=== PATIENT | male | born 1990 | race Two or more races ===

== ENCOUNTER 2022-02-06 04:05 | Emergency (ER) | payer SELFPAY ==
[~2022-02-06] VITALS: Ht 162.6 cm; Wt 73.0 kg
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
[2022-02-06] MEDS ORDERED: ONDANSETRON PF 4 MG/2 ML VIAL. IVP ONE (04:15)
[2022-02-06] MEDS ORDERED: MORPHINE SULFATE 4 MG/ML INJ. IVP ONE ×2 (04:15→05:30)
[2022-02-06] MEDS ORDERED: LIDOCAINE 1% Multi-Dose 20 ML VIAL. ONE (04:16)
[2022-02-06] MEDS ORDERED: LIDOCAINE 2% Multi-Dose 20 ML VIAL. ONE (04:16)
[2022-02-06] MEDS ORDERED: LIDOCAINE 1% Multi-Dose 20 ML VIAL. INJ ONE (04:30)
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
[2022-02-06] MEDS ORDERED: DIPHTH,PERTUSS(ACELL),TET TOX 0.5 ML DISP.SYRIN. VAX IM ONE (05:15)
[2022-02-06] MEDS ORDERED: HYDROcodone/APAP 5/325MG 1 TAB TABLET ONE (05:15)
[2022-02-06] MEDS ORDERED: CEPH500C PO (05:33)
[2022-02-06] MEDS ORDERED: HYDR-2759 PO (05:33)
[2022-02-06 06:16] VITALS: BP 147/68
== END 2022-02-06 06:37 | disposition home or self-care (01) ==
LOC: EEVIPCON 04:05 → ER 04:05
DX: S51.812A Laceration without foreign body of left forearm, initial encounter (principal); J45.909 Unspecified asthma, uncomplicated; Z88.0 Allergy status to penicillin; Y08.89XA Assault by other specified means, initial encounter; Y93.89 Activity, other specified; Y92.89 Other specified places as the place of occurrence of the external cause; Y99.8 Other external cause status
CPT/HCPCS: 12002; 73090; 73130; 90471; 90715; 96365; 96375; 96376; 99285; J0690; J2270; J2405; J3490; 96374

== ENCOUNTER 2022-02-13 15:38 | Emergency (ER) | payer SELFPAY ==
[~2022-02-13] VITALS: Ht 175.3 cm; Wt 70.4 kg
[~2022-02-13 15:38] MED LIST: CEPH500C PO; HYDR-2759 PO
[2022-02-13 15:43] VITALS: BP 121/76
[2022-02-13] MEDS ORDERED: HYDROcodone/APAP 5/325MG 1 TAB TABLET PO ONE (16:15)
[2022-02-13] MEDS ORDERED: BACITRACIN TOPICAL OINT PACKET. TP ONE ×2 (16:25→17:00)
--- NOTE | 2022-02-13 17:03 | PHYS DOC ---
Past Medical History Past Surgical History: No Surgical History Smoking Status: Never Smoker Alcohol Use: Occasionally General Adult EDM: Chief Complaint: SUTURE/STAPLE REMOVAL HPI: HPI: Patient is a 31-year-old male presents to the emergency department for suture removal. Patient states he has sutures to his right ring finger and left forearm. Patient reports he had the sutures placed on February 06 and was told to come back to have his sutures removed in 7 to 10 days. Patient complains of pain to his right hand suture site. Patient denies other physical complaints or physical concerns. Patient reports his last tetanus immunization was less than 5 years ago. Review of Systems: Review of Systems: 14 body systems of review of systems have been reviewed. See HPI for pertinent positives and negative responses, otherwise all other systems are negative, nonpertinent or noncontributory. Constitutional: Negative except as outlined in HPI above. Skin: Negative except as outlined in HPI above. Eyes: Negative except as outlined in HPI above. HENT: Negative except as outlined in HPI above. Respiratory: Negative except as outlined in HPI above. Cardiovascular: Negative except as outlined in HPI above. GI: Negative except as outlined in HPI above. : Negative except as outlined in HPI above. Musculoskeletal: Negative except as outlined in HPI above. Integument: Negative except as outlined in HPI above. Neurologic: Negative except as outlined in HPI above. Endocrine: Negative except as outlined in HPI above. Lymphatic: Negative except as outlined in HPI above. Psychiatric: Negative except as outlined in HPI above. Heart Score: C/O Chest Pain: No Risk Factors: Risk Factors: DM, Current or recent (<one month) smoker, HTN, HLP, family history of CAD, obesity. Risk Scores: Score 0 - 3: 2.5% MACE over next 6 weeks - Discharge Home Score 4 - 6: 20.3% MACE over next 6 weeks - Admit for Clinical Observation Score 7 - 10: 72.7% MACE over next 6 weeks - Early Invasive Strategies Current Medications: Current Medications Medications (Trade) Dose Ordered Sig/Jessika Start Time Stop Time Status Last Admin Dose Admin Acetaminophen/ Hydrocodone Bitart (Lortab 5/325) 2 tab 1X ONCE 02/13/22 16:15 02/13/22 16:16 DC 02/13/22 16:15 2 TAB Bacitracin (Bacitracin Zinc Oint Pkt) 1 pkt 1X ONCE 02/13/22 17:00 02/13/22 17:01 Allergies: Allergies: Allergies Coded Allergies Type Severity Reaction Last Updated Verified No Known Drug Allergies 02/06/22 No Physical Exam: PE: Constitutional: Well developed, well nourished, no acute distress, non-toxic appearance. 31-year-old male in no apparent distress. HENT: Normocephalic, atraumatic. Eyes: Conjunctiva normal, no discharge. Neck: Normal range of motion, no stridor. Cardiovascular: No cyanosis appreciated, distal cap refill less than 2 seconds. Lungs & Thorax: Patient is in no respiratory distress, no audible adventitious lung sounds appreciated. Abdomen: Nontender, no abnormalities noted. Skin: Warm, dry, no erythema, no rash. See extremity note for focused skin examination. Back: No tenderness, no deformities. Extremities: No tenderness, no cyanosis, no clubbing, ROM intact, no edema. Suture site of right forearm well-healed, edges well approximated, only one suture remains. Right middle finger tip avulsion site has dark red crusted scabbing and, no purulent drainage, no swelling appreciated. Right ring finger distal tip avulsion site with 4 sutures embedded under dark red crusted scabbing, there is no purulent drainage, no infectious process appreciated. Patient reports pain to palpation of affected finger tips, otherwise full AROM/PROM of all digits of the right hand, 2+ radial pulses bilateral upper extremities. Neurologic: Alert and oriented X 3, normal motor function, normal sensory function, no focal deficits noted. Psychologic: Affect normal, judgement normal, mood normal. Current Patient Data: Vital Signs: Vital Signs Date Time Temp Pulse Resp B/P (MAP) Pulse Ox O2 Delivery O2 Flow Rate FiO2 02/13/22 16:15 20 97 Room Air 02/13/22 15:43 98.0 16 121/76 (91) 98.0 EKG: EKG: [] Radiology/Procedures: Radiology/Procedures: [] Course & Med Decision Making: Course & Med Decision Making Pertinent Labs and Imaging studies reviewed. (See chart for details) 31-year-old male, vital signs reviewed, presents emergency department concerning suture removal. On chart review, patient was here on 02/06/2022. Had 3 sutures to the left forearm, 4 sutures to the right ring finger tip. The suture site on the left forearm is well-healed, there was only one suture remaining, there is no sign of infectious process. However the suture site of the right ring fingertip and the avulsion of the right middle fingertip appears to be infectious free however there was no evidence of home wound care, the sutures were embedded under eschar. Will soak right hand in warm soapy water prior to s uture removal. After approximate 20-minute soak in warm soapy water, 4 sutures were removed from the right ring fingertip, patient experienced 10 out of 10 pain during this procedure, patient was given p.o. pain medication. The single remaining suture of the left forearm was removed without difficulty, patient tolerated well. The right hand fingertips were cleansed and dressed with bacitracin and tube gauze by ED nursing staff. Discussed with patient ongoing wound care at home, follow-up with wound care center, primary care provider soon. Patient gave verbal understanding of and is amenable to ED discharge planning. Used tipple boss service [employer] for all interaction with patient. Dragon Disclaimer: Dragon Disclaimer: This electronic medical record was generated, in whole or in part, using a voice recognition dictation system. Departure Departure Impression: Primary Impression: Visit for suture removal Disposition: HOME / SELF CARE / HOMELESS Condition: GOOD Referrals: NO PCP (PCP) Patient Instructions: Delayed Wound Closure, Laceration, Old, Not Sutured, W ound Care, [id number] Additional Instructions: Lo vieron hoy en el departamento de emergencias para que le quitaran las suturas. Le quitaron las suturas de jimenez antebrazo benjamin sin dificultad. [facility] dolor sathish la extraccin de la sutura del dedo anular derecho. Le dieron medicamentos para el dolor hoy en el departamento de emergencias. Es muy importante que contine con un buen cuidado de la herida. No aplique alcohol o perxido de hidrgeno a oumar heridas en proceso de curacin. Remoja agua jabonosa tibia todos los shah sathish al menos 20 minutos henrietta lo hicimos aqu en el departamento de emergencias hoy. Hawkeye ayudar en la curacin. Despus de remojar, aplique jan pomada antibitica henrietta Polysporin o Neosporin 2-3 veces al da y cubra con un vendaje hasta que sane joao. Debido a la naturaleza de estas heridas, la piel puede tardar un tiempo en completar jimenez proceso de curacin. Sathish gatito tiempo, es normal experimentar dolor a medida que las terminaciones nerviosas y el nuevo tejido de la piel se desarrollan y cicatrizan. Contine tomando Tylenol o Motrin de venta sindy para gatito malestar. Contine mantenindose limpio y seco y limpie diariamente. Adjunto instrucciones para las tcnicas de cuidado de heridas, sgalas atentamente. Es importante que jimenez mdico de atencin primaria vuelva a revisar jimenez herida pronto, si no tiene un mdico de atencin primaria, adjuntar jan lista de clnicas de atencin primaria y mdicos con los que puede establecer atencin mdica. Llame gregg o el criss para la ankush ms pronto. Viktor por visitar nuestro Departamento de Emergencias. Fue un placer atenderlo hoy en el departamento de emergencias y le agradecemos que nos haya confiado jimenez atencin. Si surge algn problema adicional, no dude en volver a visitarnos. Mary un seguimiento con jimenez proveedor de atencin primaria para que puedan planificar atencin adicional si es necesario y conocer el problema que tuvo. Si los sntomas empeoran, regrese al Departamento de Emergencias. Cualquier sntoma preocupante que comience, henrietta dolor en el pecho, falta de aire, debilidad o entumecimiento en un lado del cuerpo, fiebre cony o cualquier otro sntoma preocupante, regresa a la bridgett de emergencias. You were seen today in the emergency department to have your sutures removed. The sutures were removed from your left forearm without difficulty. You did experience pain during the suture removal of your right ring finger. You were given pain medication today in the emergency department. It is very important that you continue good wound care. Do not apply alcohol or hydrogen peroxide to your healing wounds. Please soak daily and warm soapy water for at least 20 minutes like we did here in the emergency department today. This will aid in healing. After soaking please apply antibiotic ointment such as Polysporin or Neosporin 2-3 times a day and cover with bandage until well-healed. Because of the nature of these wounds, it may take some time for the skin to complete its healing process. During this time it is normal to experience pain as the nerve endings and new skin tissue are developing and healing. Please continue to take [id number] Tylenol or Motrin for this discomfort. Please continue to keep clean and dry and cleanse daily. I have attached instructions for wound care techniques, please follow closely. It is important that you have your wound rechecked by your primary care doctor soon, if you do not have a primary care doctor I will attach a list of primary care clinics and physicians for you to establish health care with. Call today or Wednesday for the soonest appointment. Thank you for visiting our Emergency Department. It was a pleasure taking care of you today in the emergency department and we appreciate you trusting us with your care. If any additional problems come up don't hesitate to return to visit us. Please follow up with your primary care provider so they can plan additional care if needed and know about the problem that you had. If symptoms worsen come back to the Emergency Department. Any concerning symptoms that start such as chest pain, shortness of air, weakness or numbness on one side of the body, running high fevers or any other concerning symptoms return to the ER. Tavon [facility] [address] [place] [address] [facility] [address] [place] [address] [place] [address] [facility] [address] [place] [address] [facility] [address] [place] [address] [address] [place] [address] [address] [place] [address] [facility] [address] [place] [address] [facility] [address] [place] [address] [facility] [address] [place] [address] CHRISTINA FONTANA [employer] T[employer] TECHNICIAN Feb 13, 2022 17:03
== END 2022-02-13 17:29 | disposition home or self-care (01) ==
LOC: ER 15:38
DX: S61.214D Laceration without foreign body of right ring finger without damage to nail, subsequent encounter (principal); S51.812D Laceration without foreign body of left forearm, subsequent encounter; X58.XXXD Exposure to other specified factors, subsequent encounter
CPT/HCPCS: 99283